=== PATIENT | female | born 1985 ===

== ENCOUNTER 2017-02-13 15:06 | Emergency (ER) | payer MEDICAID ==
[~2017-02-13] VITALS: Ht 157.5 cm; Wt 54.4 kg
[2017-02-13] MEDS ORDERED: DICL500C PO (17:27)
--- NOTE | 2017-02-13 17:27 | PHYS DOC ---
Past Medical History Past Medical History: No Pertinent History Past Surgical History: No Surgical History Alcohol Use: None Drug Use: None Adult General Chief Complaint Chief Complaint: BREAST PROBLEM HPI HPI Patient is a 31 year old female who presents with left breast pain and swelling and chills and fever over the past couple days. Pain is constant, achy , severe. No discoloration, injury, rash. Still breast feeding her 11 month old. Review of Systems Review of Systems Constitutional: Denies fever or chills [] Eyes: Denies change in visual acuity, redness, or eye pain [] HENT: Denies nasal congestion or sore throat [] Respiratory: Denies cough or shortness of breath [] Cardiovascular: No additional information not addressed in HPI [] GI: Denies abdominal pain, nausea, vomiting, bloody stools or diarrhea [] : Denies dysuria or hematuria [] Musculoskeletal: Denies back pain or joint pain [] Integument: Denies rash or skin lesions [] Neurologic: Denies headache, focal weakness or sensory changes [] Endocrine: Denies polyuria or polydipsia [] Current Medications Current Medications Current Medications Medications (Trade) Dose Ordered Sig/Nasmi Start Time Stop Time Status Last Admin Dose Admin Ibuprofen (Motrin) 400 mg 1X ONCE 02/13/17 17:30 02/13/17 17:31 DC 02/13/17 17:51 400 MG Allergies Allergies Allergies Coded Allergies Type Severity Reaction Last Updated Verified No Known Drug Allergies 02/13/17 No Physical Exam Physical Exam Constitutional: Well developed, well nourished, no acute distress, non-toxic appearance. [] HENT: Normocephalic, atraumatic, bilateral external ears normal, oropharynx moist, nose normal. [] Eyes: PERRLA, EOMI. [] Neck: Normal range of motion, supple. [] Cardiovascular:Heart rate regular rhythm [] Lungs & Thorax: Bilateral breath sounds clear to auscultation [] Breast: Left breast slightly larger than right; minimal rubor to left medial and inferior breast; fullness of left breast ducts with tenderness and warmth; no crepitance or induration; normal appearing and symmetrical nipples and areolas Abdomen: Bowel sounds normal, soft, no tenderness. [] Skin: Warm, dry, no erythema, no rash. [] Extremities: No tenderness, ROM intact. [] Neurologic: Alert and oriented X 3, normal motor function, normal sensory function, no focal deficits noted. [] Psychologic: Affect normal, judgement normal, mood normal. [] Current Patient Data Vital Signs Vital Signs Date Time Temp Pulse Resp B/P Pulse Ox O2 Delivery O2 Flow Rate FiO2 02/13/17 18:25 103.1 108 20 106/58 100 Room Air 103.1 Course & Med Decision Making Course & Med Decision Making Pertinent Labs and Imaging studies reviewed. (See chart for details) Will treat for likely mastitis. Return precautions given. She understands and agrees with plan. Dragon Disclaimer Dragon Disclaimer This electronic medical record was generated, in whole or in part, using a voice recognition dictation system. Departure Departure Impression: Primary Impression: Mastitis in female Disposition: 01 HOME, SELF-CARE Condition: STABLE Referrals: NON,STAFF (PCP) Patient Instructions: , Mastitis Additional Instructions: Take Tylenol or ibuprofen as needed for pain or fever. Take dicloxacillin to help with infection. Continue breast-feeding. Follow-up with your primary care doctor or OB doctor within one week. Return for any concerns. Scripts Dicloxacillin Sodium 500 Mg Capsule1 Cap PO QID #28 CAP Prov:Corrina GUILLEN MD 02/13/17 Corrina GUILLEN MD Feb 13, 2017 17:27
[2017-02-13] MEDS ORDERED: IBUPROFEN 400 MG TABLET. PO ONE (17:30)
[2017-02-13 18:25] VITALS: BP 106/58
== END 2017-02-13 18:27 | disposition home or self-care (01) ==
LOC: ER 15:06
DX: N61.0 Mastitis without abscess (principal)
CPT/HCPCS: 99283